=== PATIENT | male | born 1980 | race Caucasian/White ===

== ENCOUNTER 2017-04-13 19:26 | Inpatient (IN) | payer OTHER ==
[~2017-04-13] VITALS: Ht 180.3 cm; Wt 95.3 kg
--- NOTE | 2017-04-13 19:35 | NUR ---
37M C/O 1 DAY OF BILAT ANKLE/FOOT SWELLING WITH PAIN PINPRICKING SENSATION, NOTABLE WARMTH/REDNESS AND BLANCHABLE. DENIES SUN EXPOSURE. DELAYED CAP REFILL ALSO NOTED TO BILAT HANDS. BLOODWORK AT URGENT CARE SHOWS WBC 14.5 WITH SHIFT. REPORTS TEMP OF 101 AT HOME BUT ARRIVES AFEBRILE. ENDORSES LETHARGY AND FATIGUE X3 DAYS. REPORTS FAMILY AT HOME HAS BEEN SICK W GI BUG. -N/V/D, + POOR APPETITE. (-) SYMPTOMS. PREHOSP EKG NORMAL SINUS WITHOUT ECTOPY
--- NOTE | 2017-04-13 19:46 | NUR ---
PT'S BLOOD DRAWN AT TRIAGE 1940 2LAV, 1BLU,1GRAY,1SST AND SENT TO LAB
[2017-04-13 20:05] LABS: ABSOLUTE BASOPHIL COUNT 0 /CUMM (0.0-0.2); ABSOLUTE EOSINOPHIL COUNT 0 /CUMM (0.0-0.7); ABSOLUTE GRANULOCYTE CT 12.7 /CUMM (1.4-6.5); ABSOLUTE LYMPH COUNT 1.9 /CUMM (1.2-3.4); ABSOLUTE MONOCYTE COUNT 0.9 /CUMM (0.10-0.60); BASOPHIL % 0 % (0.0-2.0); EOSINOPHIL % 0.2 % (0-5); GRANULOCYTE % 81.6 % (42.2-75.2); HEMATOCRIT 44.5 % (42-52); MEAN CORPUSCULAR HGB 30.7 PG (27.0-31.0); MEAN CORPUSCULAR HGB CONC 34.3 G/DL (33.0-37.0); MEAN CORPUSCULAR VOLUME 89.6 FL (80.0-94.0); MEAN PLATELET VOLUME 8.7 FL (7.4-10.4); PLATELET COUNT 230 /CUMM (130-400); RBC DISTRIBUTION WIDTH 12.6 % (11.5-14.5); RED BLOOD CELL CT 4.97 /CUMM (4.70-6.10); WHITE BLOOD CELL COUNT 15.6 /CUMM (4.8-10.8)
--- NOTE | 2017-04-13 20:37 | NUR ---
PT AMBULATORY TO ROOM WITH SHORT SHUFFLING STEPS
--- NOTE | 2017-04-13 20:38 | ED GENERAL ADULT ---
History of Present Illness General Chief Complaint: Lower Extremity Problems Stated Complaint: SWELLING IN FEET/ABNORMAL LABS Source: patient Exam Limitations: no limitations Vital Signs & Intake/Output Vital Signs & Intake/Output Vital Signs Date Time Temp Pulse Resp B/P B/P Pulse O2 O2 Flow FiO2 Mean Ox Delivery Rate 04/14 0011 98.1 87 16 128/68 96 Room Air 04/13 2235 98.0 84 14 114/72 04/13 2202 Room Air 04/13 1939 98.1 96 16 98/66 96 Room Air ED Intake and Output 04/14 0000 04/13 1200 Intake Total 1100 Output Total Balance 1100 Intake, IV 1100 Patient 210 lb Weight Weight Reported by Patient Measurement Method Allergies Coded Allergies: animal dander (ITCHY WATERY EYES, DYSPNEA 04/13/17) ibuprofen (Intermediate, PALPITATIONS 04/13/17) Reconcile Medications Ezetimibe (Zetia) 10 MG TABLET 1 TAB PO DAILY CHOLESTEROL (Reported) Pravastatin Sodium 40 MG TABLET 1 TAB PO QPM CHOLESTEROL (Reported) Triage Note: 37M C/O 1 DAY OF BILAT ANKLE/FOOT SWELLING WITH PAIN PINPRICKING SENSATION, NOTABLE WARMTH/REDNESS AND BLANCHABLE. DENIES SUN EXPOSURE. DELAYED CAP REFILL ALSO NOTED TO BILAT HANDS. BLOODWORK AT URGENT CARE SHOWS WBC 14.5 WITH SHIFT. REPORTS TEMP OF 101 AT HOME BUT ARRIVES AFEBRILE. ENDORSES LETHARGY AND FATIGUE X3 DAYS. REPORTS FAMILY AT HOME HAS BEEN SICK W GI BUG. -N/V/D, + POOR APPETITE. (-) SYMPTOMS. PREHOSP EKG NORMAL SINUS WITHOUT ECTOPY Triage Nurses Notes Reviewed? yes Onset: Abrupt Duration: day(s): Timing: recent history HPI: 04/13/17 9 PM 37-year-old male presents to the emergency department for 3 days of fever, nausea and some epigastric discomfort. He says that his daughter was ill with a fever and vomiting. Now he's developed similar symptoms however, he developed bright red erythema and pins and needles to his bilateral lower extremities. He is also diaphoretic, having chills, and sleeping for much of the day. He was hypotensive on arrival. The onset of the symptoms were abrupt, the duration has been several days, the severity is significant as his symptoms required him to come to the emergency department for care. He denies tick bite. He denies headache. He denies cough. On physical exam his abdomen soft and nontender. He has bright red erythema to bilateral lower extremities. He has excellent dorsalis pedis pulses. His lower extremity neurological exam is normal. His heart is without murmur. Lower extremity reflexes are brisk. Past History Travel History Traveled to [place] past 21 day No Medical History Any Pertinent Medical History? see below for history Neurological: NONE EENT: NONE Cardiovascular: hyperlipidemia Respiratory: NONE Gastrointestinal: NONE Hepatic: NONE Renal: NONE Musculoskeletal: NONE Psychiatric: NONE Endocrine: NONE Blood Disorders: NONE Cancer(s): NONE Surgical History Surgical History: non-contributory Psychosocial History What is your primary language Nepali Tobacco Use: Quit >30 days ago ETOH Use: occasional use Illicit Drug Use: denies illicit drug use Family History Hx Contributory? No Review of Systems Review of Systems Constitutional: Reports: fever. EENTM: Denies: visual changes. Respiratory: Denies: cough, short of breath. Cardiovascular: Denies: chest pain. GI: Reports: diarrhea, nausea. Denies: abdominal pain. Genitourinary: Reports: no symptoms. Musculoskeletal: Reports: joint pain, muscle pain. Skin: Reports: rash. Neurological/Psychological: Denies: headache. Hematologic/Endocrine: Reports: no symptoms. Immunologic/Allergic: Reports: no symptoms. Physical Exam Physical Exam General Appearance: well developed/nourished, alert, awake, anxious, moderate distress Head: atraumatic, normal appearance Eyes: Bilateral: normal appearance, PERRL, EOMI. Ears, Nose, Throat: normal pharynx, normal ENT inspection Neck: supple, no nuchal rigidity Respiratory: normal breath sounds, chest non-tender, no respiratory distress Cardiovascular: regular rate/rhythm, no murmur Peripheral Pulses: 4+ radial (R), 4+ radial (L) Gastrointestinal: soft, non-tender Back: normal inspection, normal range of motion Extremities: pedal edema, tenderness Neurologic/Psych: no motor/sensory deficits, awake, alert, oriented x 3 Reflexes: 3+: knee (R), knee (L). Skin: intact, rash Comments: He has no murmur. He is diaphoretic. He has bilateral lower extremity erythema. It is hot, there is diffuse tenderness. No calf tenderness. Core Measures ACS in differential dx? No CVA/TIA Diagnosis: No Severe Sepsis Present: No Septic Shock Present: No Progress Differential Diagnoses I considered the following diagnoses in my evaluation of the patient: [ Cellulitis, endocarditis, bacteremia, tick borne illness, viral syndrome, Guillain-Franklin syndrome] Plan of Care: Orders Procedure Date/time Status Heart Healthy Diet 04/14 B Active Add-on Test (ER Only) 04/14 0028 Active Patient Data 04/13 2257 Active VITAL CAPACITY MONITORING 04/13 2242 Active Admit to inpatient 04/13 2242 Active Code Status 04/13 2242 Active EKG 04/13 2051 Active Add-on Test (ER Only) 04/13 2050 Active BLOOD CULTURE 04/13 2048 Active Intake & Output 04/13 1948 Active Add-on Test (ER Only) 04/13 1947 Active LACTIC ACID 04/13 1940 Complete C-REACTIVE PROTEIN 04/13 1940 Complete COMPREHENSIVE METABOLIC PANEL 04/13 1934 Complete CBC WITHOUT DIFFERENTIAL 04/13 1934 Complete Current Medications Sig/Isadora Start time Last Medication Dose Stop Time Status Admin Pravastatin Sodium 20 MG 1700 04/14 1700 AC (Pravachol) Ezetimibe 10 MG DAILY 04/14 1000 AC (Zetia) Sodium Chloride 1,000 ML Q10H 04/14 0015 AC (Normal Saline 0.9%) Laboratory Tests 04/13/171939: Anion Gap 13, Estimated GFR > 60, BUN/Creatinine Ratio 13.3, Glucose 97, Lactic Acid 1.0, Calcium 9.1, Total Bilirubin 1.7 H, AST 51, ALT 82 H, Alkaline Phosphatase 62, C-Reactive Prot, Quant 7.3 H, Total Protein 7.7, Albumin 4.6, Globulin 3.1, Albumin/Globulin Ratio 1.5, CBC w Diff MAN DIFF ORDERED, RBC 4.97, MCV 89.6, MCH 30.7, RDW 12.6, MPV 8.7, Gran % 81.6 H, Lymphocytes % 12.2 L, Monocytes % 6.0, Eosinophils % 0.2, Basophils % 0 L, Absolute Granulocytes 12.7 H, Segmented Neutrophils 67, Band Neutrophils 11 H, Absolute Lymphocytes 1.9, Lymphocytes 18 L, Monocytes 4, Absolute Monocytes 0.9 H, Absolute Eosinophils 0, Absolute Basophils 0, Platelet Estimate ADEQUATE, Poikilocytosis 2+, Stomatocytes 2+, PUBS MCHC 34.3 Microbiology 04/13 2140 BLOOD: Blood Culture - RECD 04/13 2125 BLOOD: Blood Culture - RECD Initial ED EKG: NSR Departure Departure Disposition: STILL A PATIENT Condition: Stable Clinical Impression Primary Impression: Hyperpyrexia Secondary Impressions: Cellulitis Referrals: PATRICK HERNANDEZ MD (PCP/Family) Departure Forms: Customer Survey General Discharge Information Admission Note Spoke With: MARY VALDEZ,EDIE Documentation of Exam: Documentation of any treatments & extenuating circumstances including Concerns Regarding Discharge (functional status, medication knowledge or non-compliance, living conditions, etc.) that warrant an admission rather than observation: [The patient had severe weakness and fever 101.2 at home, he had been lethargic and was having rigors. He is being admitted for IV fluids, IV antibiotics, infectious disease consult, consider echocardiogram and follow blood cultures to rule out bacteremia] Chest x-ray was negative PATIENT: MAHIN VELEZ PRESENT AGE: 37 PATIENT ACCOUNT NO: [id number] : 78 LOCATION: [facility] ORDERING PHYSICIAN: MOJGAN ENRIQUEZ DO SERVICE DATE: 04/13/17 EXAM TYPE: CAT - CT ABD & PELVIS W IV CONTRAST EXAMINATION: CT ABDOMEN AND PELVIS WITH CONTRAST CLINICAL INFORMATION: Epigastric abdominal pain and fever. COMPARISON: None. TECHNIQUE: Multidetector volumetric imaging was performed of the abdomen and pelvis before and after the IV administration of 95 mL of Optiray 320 intravenous contrast. Sagittal and coronal reformatted images were obtained on the technologist's workstation. DLP: 524 mGy-cm FINDINGS: LUNG BASES: The visualized lung bases are unremarkable. LIVER, GALLBLADDER, AND BILIARY TREE: The liver is normal in size, shape and contour. There is diffuse low-attenuation of the liver parenchyma, indicative of diffuse fatty infiltration of the liver. There are geographic regions of focal fatty sparing adjacent to the gallbladder fossa. No biliary ductal dilatation is identified. There are no visible hepatic lesions. The gallbladder is unremarkable with no evidence of radiopaque gallstones, gallbladder wall thickening, or obvious pericholecystic inflammatory changes. PANCREAS: Unremarkable. SPLEEN: Unremarkable. ADRENAL GLANDS: Unremarkable. KIDNEYS AND URETERS: The kidneys are normal in size, shape, and attenuation. No hydronephrosis, hydroureter, or calculi seen. No perinephric stranding. BLADDER: Unremarkable. GASTROINTESTINAL TRACT: Normal anatomic orientation of the stomach relative to the duodenum. Normal caliber of abdominal and pelvic bowel loops, without evidence of obstruction or ileus. No circumferential bowel wall thickening with surrounding inflammatory changes to suggest an underlying infectious or inflammatory enterocolitis. Normal-appearing appendix within the right lower quadrant of the abdomen. A moderate amount of retained stool throughout the colon, indicative of constipation. Scattered colonic diverticulosis, without secondary signs of acute diverticulitis. No organizing intra-abdominal fluid collections or free intraperitoneal air. ABDOMINAL WALL: No significant hernia is appreciated. LYMPH NODES: No significant abdominal or pelvic adenopathy. VASCULAR: Patent abdominal vasculature. Normal course and caliber of the abdominal aorta and its branching vessels, without aneurysmal dilatation. PELVIC VISCERA: Unremarkable. OSSEOUS STRUCTURES: No acute osseous abnormality. Normal alignment of the thoracolumbar spine. Vertebral body heights and intervertebral disc spaces are grossly preserved. IMPRESSION: No acute findings within the abdomen or pelvis to explain patient symptomatology. Incidental note is made of diffuse low-attenuation of the liver parenchyma, indicative of fatty infiltration of the liver. DICTATED BY: ABDULLAHI PINEDO MD DATE/TIME DICTATED:04/13/172121 GUEST EXPERIENCE REPRESENTATIVE:JERED DATE/TIME TRANSCRIBED:04/13/172121 CONFIDENTIAL, DO NOT COPY WITHOUT APPROPRIATE AUTHORIZATION. <Electronically signed in Other Vendor System> SIGNED BY: ABDULLAHI PINEDO MD 04/13/172129 Critical Care Note Critical Care Note Critical Care Time: non-applicable
--- NOTE | 2017-04-13 20:46 | NUR ---
DR ENRIQUEZ WITH PATIENT
--- NOTE | 2017-04-13 21:12 | RADIOLOGY REPORT ---
EXAMINATION: XR PORTABLE CHEST CLINICAL INFORMATION: Fever. COMPARISON: None TECHNIQUE: Frontal view of the chest was obtained. FINDINGS: The cardiomediastinal silhouette is unremarkable. The lungs and pleural spaces appear clear without evidence of congestion, consolidation, or significant appearing effusion or atelectasis. There is no evidence of pneumothorax or pulmonary edema. Included osseous structures appear largely unremarkable. IMPRESSION: Unremarkable examination.
--- NOTE | 2017-04-13 21:30 | CT SCAN REPORT ---
EXAMINATION: CT ABDOMEN AND PELVIS WITH CONTRAST CLINICAL INFORMATION: Epigastric abdominal pain and fever. COMPARISON: None. TECHNIQUE: Multidetector volumetric imaging was performed of the abdomen and pelvis before and after the IV administration of 95 mL of Optiray 320 intravenous contrast. Sagittal and coronal reformatted images were obtained on the technologist's workstation. DLP: 524 mGy-cm FINDINGS: LUNG BASES: The visualized lung bases are unremarkable. LIVER, GALLBLADDER, AND BILIARY TREE: The liver is normal in size, shape and contour. There is diffuse low-attenuation of the liver parenchyma, indicative of diffuse fatty infiltration of the liver. There are geographic regions of focal fatty sparing adjacent to the gallbladder fossa. No biliary ductal dilatation is identified. There are no visible hepatic lesions. The gallbladder is unremarkable with no evidence of radiopaque gallstones, gallbladder wall thickening, or obvious pericholecystic inflammatory changes. PANCREAS: Unremarkable. SPLEEN: Unremarkable. ADRENAL GLANDS: Unremarkable. KIDNEYS AND URETERS: The kidneys are normal in size, shape, and attenuation. No hydronephrosis, hydroureter, or calculi seen. No perinephric stranding. BLADDER: Unremarkable. GASTROINTESTINAL TRACT: Normal anatomic orientation of the stomach relative to the duodenum. Normal caliber of abdominal and pelvic bowel loops, without evidence of obstruction or ileus. No circumferential bowel wall thickening with surrounding inflammatory changes to suggest an underlying infectious or inflammatory enterocolitis. Normal-appearing appendix within the right lower quadrant of the abdomen. A moderate amount of retained stool throughout the colon, indicative of constipation. Scattered colonic diverticulosis, without secondary signs of acute diverticulitis. No organizing intra-abdominal fluid collections or free intraperitoneal air. ABDOMINAL WALL: No significant hernia is appreciated. LYMPH NODES: No significant abdominal or pelvic adenopathy. VASCULAR: Patent abdominal vasculature. Normal course and caliber of the abdominal aorta and its branching vessels, without aneurysmal dilatation. PELVIC VISCERA: Unremarkable. OSSEOUS STRUCTURES: No acute osseous abnormality. Normal alignment of the thoracolumbar spine. Vertebral body heights and intervertebral disc spaces are grossly preserved. IMPRESSION: No acute findings within the abdomen or pelvis to explain patient symptomatology. Incidental note is made of diffuse low-attenuation of the liver parenchyma, indicative of fatty infiltration of the liver.
[2017-04-13] MEDS ORDERED: ZETIA10 M1 PO (22:18)
[2017-04-13] MEDS ORDERED: PRAVASTATIN SOD40 M2 PO (22:18)
--- NOTE | 2017-04-13 23:32 | History & Physical ---
GABRIELLA VALDEZ,[facility] 04/13/17 2331: General Information and HPI MD Statement: I have seen and personally examined MAHIN VELEZ and documented this H& P. The patient is a 37 year old M who presented with a patient stated chief complaint of [fever, chills, swelling and redness of bilateral feet for 2 day]. Source of Information: patient Exam Limitations: no limitations History of Present Illness: Mr. Kee is 37 year old male with chief complaint of fever, chills, rash and swelling of bilateral feet for 2 day. Patient has past medical history significant for hyperlipidemia and GERD. The patient reported history of viral gastroenteritis in his family (, 2 daughters) last week, on Wednesday morning he complained of nausea that responded well to Pepcid, later developed fever of 101 that improved with tyelanol, denied chills, went to bed and woke up at 3 AM complaining of severe heartburn for what he had Prilosec without improvement, had some baking soda that helped him but later developed again fever at this time associated with chills. Patient reported onset of pins and needle sensation in the feet, fever 101.2 this evening, took 2 tablets of Tylenol and had a nap 45 minutes and when he woke up he noticed swelling and redness of his feet for what he decided to come to ED for evaluation. Patient reported tension achy headache, pins and needles sensation in palms as well. Denied any abdominal pain, vomiting, diarrhea, constipation last bowel movement was 2 days ago, dysuria or penile discharge, skin itching, shortness of breath, chest pain, joint pain, penile discharge, history of falls. He denied any history of tick bite however mentioned that his had tick bite last week. Patient denied food or drug allergy. No previous hospitalizations except for left knee arthroscopy. Ex-smoker quit 10 years ago, smoked 10 years prior to that of 1 pack per day, alcohol consumption for to 5 glasses of wine per week, no illicit drugs. Allergies/Medications Allergies: Coded Allergies: animal dander (ITCHY WATERY EYES, DYSPNEA 04/13/17) ibuprofen (Intermediate, PALPITATIONS 04/13/17) Home Med list Ezetimibe (Zetia) 10 MG TABLET 1 TAB PO DAILY CHOLESTEROL (Reported) Pravastatin Sodium 40 MG TABLET 1 TAB PO QPM CHOLESTEROL (Reported) Past History Travel History Traveled to [place] past 21 day No Medical History Neurological: NONE EENT: NONE Cardiovascular: hyperlipidemia Respiratory: NONE Gastrointestinal: GERD Hepatic: NONE Renal: NONE Musculoskeletal: NONE Psychiatric: NONE Endocrine: NONE Blood Disorders: NONE Cancer(s): NONE Surgical History Surgical History: non-contributory Past Family/Social History Psychosocial History Smoking Status: Former Smoker ETOH Use: occasional use Illicit Drug Use: denies illicit drug use Employment History Employment Employed Review of Systems Review of Systems Constitutional: Reports: see HPI. Exam & Diagnostic Data Last 24 Hrs of Vital Signs/I&O Vital Signs Date Time Temp Pulse Resp B/P B/P Pulse O2 O2 Flow FiO2 Mean Ox Delivery Rate 04/14 0011 98.1 87 16 128/68 96 Room Air 04/13 2235 98.0 84 14 114/72 04/13 2202 Room Air 04/13 1939 98.1 96 16 98/66 96 Room Air Intake & Output 04/14 0800 04/14 0000 04/13 1600 Intake Total 1100 Output Total Balance 1100 Intake, IV 1100 Patient 95.254 kg 95.254 kg Weight Weight Reported by Patient Reported by Patient Measurement Method Physical Exam General Appearance Alert, Oriented X3, Cooperative, No Acute Distress Skin blanching petechial rash over bilateral feet, arms, ears, chest Skin Temp/Moisture Exam: Warm/Dry HEENT Atraumatic, PERRLA, EOMI, Mucous Membr. moist/pink Neck Supple Lymphatic no cervical lymphadenopathy Cardiovascular Regular Rate, Normal S1, Normal S2, No Murmurs Lungs Clear to Auscultation, Normal Air Movement Abdomen Normal Bowel Sounds, Soft, No Tenderness, No Hepatospenomegaly, No Masses, distended Neurological Normal Gait, Normal Speech, Strength at 5/5 X4 Ext, Normal Tone, Sensation Intact, Cranial Nerves 3-12 NL Extremities No Clubbing, No Cyanosis, Normal Pulses, very sensitive feet to light touch swollen but no pedal pitting edema Assessment/Plan Assessment: Mr. Kee is 37 year old male with past medical history significant for hyperlipidemia and GERD, has chief complaint of fever, chills, rash, swelling, pins and needles sensation of bilateral feet and palms. No signs or symptoms of neurological deficit. History of sick contact patient's family with gastroenteritis last week and history of tick bite patient's last week as well. Patient's vital signs are stable, afebrile in the hospital may be because of recent use of acetaminophen at home, MAXIMUM TEMPERATURE 101.2. His lab is pretinent to leukocytosis with left shift and bandemia, ALT 82, C-reactive protein 7.3, no imaging abnormality on chest x-ray or CT abdomen and pelvis with IV contrast except for fatty liver, diverticulosis without signs of diverticulitis and constipation. Patient presentation seemed to be either viral illness versus tickborne disease or could be vasculitis. Another thing that needs explanation the transaminitis ALT that can be a finding in viral/tickborne illnesses. Plan -Admit to general medical floor -IV fluid normal saline 75 mL/h -Pain management -Follow-up anaplasma and Lyme titer -Obtain hepatitis panel -Repeat liver function test, BMP and CBC in a.m. -Obtain coagulase -Obtain UA -Peripheral smear -Vital signs every shift -Neuro check every 4 hours -We'll follow off antibiotics -ID consultation in a.m. -Diet regular -DVT prophylaxis Lovenox -Code full As Ranked By This Provider Problem List: 1. Chills 2. Skin rash 3. Fever Core Measures/Miscellaneous Acute Coronary Syndrome ACS Diagnosis: No Cerebrovascular Accident CVA/TIA Diagnosis: No Congestive Heart Failure CHF Diagnosis: No VTE (View Protocol) VTE Risk Factors: Acute medical illness No [facility] VTE prophylaxis d/t: No contraindications No VTE Pharm Prophylaxis d/t: No contraindications VTE Diagnosis: No VTE Type: NONE VTE Confirmed by (Test): NONE Sepsis (View Protocol) Severe Sepsis Present: No Septic Shock Septic Shock Present: No Miscellaneous Documentation Attending Case Discussed With: RADHA HERNANDEZ MD Primary Care Physician: PATRICK HERNANDEZ MD Patient sees these Specialists NONE Level of Patient Care: General Medicine SPARKLE PEREZ MD 04/13/17 1046: Resident Review Statement Resident Statement: examined this patient, discussed with safety intern, agreed with safety intern Other Findings: This is a pleasant 37-year-old male with a past medical history of only significant for high cholesterol, GERD and former smoker who presents with a 2 day onset of fever with a MAXIMUM TEMPERATURE of 101.2, heartburn, one episode of nausea but no vomiting and sudden onset of non-pruritic redness and swelling on his bilateral lower extremities with pins and needles sensation. He also endorses a tension headache that denies any known food or drug allergies, joint pain or myalgia. No hx of autoimmune disease or rheumatolgic hx. Pertinent exam-erythematous blanchable/petechial rash on both feet and both hands with decreased sensation and hypersensitivity to touch. Rash also present on earlobes, neck and upper chest, elbows and knees. Pertinent labs-WBC 15.6, no eosinophilia, sodium 136, bands 11, TBL 1.7, ALT 82, AST 51, CRP 7.3 CT abdomen-fatty infiltration of the liver, chest x-ray unremarkable Assessment 1. Possible Tickborne Illness vs Vasculitis e.g Drug induced vasculitis - Erlichiosis-can present with rash and a slow progressive neurological presentation that affects the extremities more than the center of the body and presents with a rash, tingling, numbness, burning/shooting pain in the legs and severe pain syndrome DD- Viral exanthem-e.g scarlet fever but he has no oral affectation; may resolve on its own in a few days - Possible Drug/food reaction 2. Leukocytosis with bands, elevated CRP 3. Elevated ALT and T. Karsten 4. HLD 5. GERD Plan Admit to GM Watch off antibiotics for now Check Lyme and anaplasma PCR Check ANDRES Check peripheral smear IVF hydration Adequate pain control Neurochecks every 4 hours to rule out any ascending paralysis or GBS-type sequelae Repeat CBCs, BEP and LFTs in a.m. ID consult in AM Check a urinalysis Check PT/APTT Obtain hepatitis panel Resume his important home medications Heart healthy diet Full code RADHA HERNANDEZ 04/14/17 0443: Attending MD Review Statement Attending Statement Attending MD Statement: examined this patient, discuss w/resident/PA/BOAT CARPENTER, agreed w/resident/PA/BOAT CARPENTER, reviewed EMR data (avail), reviewed images, amended to note Attending Assessment/Plan: CC: Fever and rash PMH: HLD, GERD Patient came to ER with 2 days of fever, associated with chills today. Patient started to notice fever yesterday, it was not associated with chills at that time, patient took some Tylenol and symptomatically better. He apparently is morning of admission patient had fever with chills up to 101. Had heartburn. He is he took an afternoon nap for 45 minutes, then he woke up, he saw redness on his feet bilaterally. It was associated with pin pricking sensation in feet, it was painful that patient could not even stand. Later on he noticed some rash on palms, back of his neck. The rash is non-itchy, no discharge, no hives, not associated with respiratory problems. The his suggested him to go to ER for the rash. He endorses fatigue and headache. Denies any chest pain, cough, sputum production, palpitations, abdominal pain, nausea, diarrhea, vomiting, urinary symptoms, joint pain, loss of consciousness, blurry vision. He is being house hunting Recently and may have mosquito bite and tick bite. His daughter had been sick with multiple vomitings, but did not have similar rash. Vitals: afebrile, pulse in 90s, RR 16, blood pressure 98/66 upon arrival, improved to 114/72, saturating well on room air. On exam: A O 3, cooperative, no acute distress, neck supple, JVD normal, no lymphadenopathy, mucosa moist, strength and reflexes intact bilateral upper and lower extremity, there is no numbness but paresthesias bilateral lower extremity , cranial nerves intact, no dependent edema, petechial rash bilateral feet, mild blanching CVS: S1-S2, RRR. RS: Clear to auscultate bilaterally. Abdomen: Soft, NT, ND, bowel sounds present. Peripheral pulses perfusion intact Labs: WBC 15.6, neutrophils 81%, bands 11 otherwise CBC unremarkable. Sodium 136 , potassium 3.6, chloride 99, bicarbonate 24, BUN 12, creatinine 0.9, anion gap 13. Bilirubin 1.7, AST 51, AST 82, alkaline phosphatase 62, CRP 7.2, albumin 4.6 CXR: No acute changes CT abdomen pelvis with IV contrast: No acute findings within the abdomen or pelvis to explain patient symptomatology. Incidental note is made of diffuse low-attenuation of the liver parenchyma, indicative of fatty infiltration of the liver. A and P 37-year-old male with the no significant past medical history presented in ER with acute febrile illness and petechial rash on feet. He does not have any documented fever in ER but had taken acetaminophen at home. He has blanching petechial rash on feet, mild redness on palms and redness on back of neck. Peripheral pulses perfusion normal, neurological exam normal, no neck stiffness, no vision abnormality. He has leukocytosis with bands and mild transaminitis with elevated bilirubin and elevated CRP. History of mosquito bite and tick bite cannot be denied. Viral to bacterial a rash or vasculitis is a possibility. This does not appear cellulitis. Of note patient had transaminitis in the past month of October, at that time he was drinking alcohol more than usual and was started on statins, transaminitis trended down when rechecked in January. + Petechial rash on feet + Acute febrile illness + Transaminitis - Admit to general medicine - Blood culture - DC antibiotics - Continue gentle hydration - ID consult in a.m. - Check peripheral smear - watch for any neurological weakness, neck stiffness, worsening headache - Check PT/PTT INR, viral hepatitis panel, UA - DVT prophylaxis with Alps only, early ambulation - Adequate pain control
--- NOTE | 2017-04-13 23:48 | NUR ---
HOUSE STAFF AT BEDSIDE FOR EVAL.
--- NOTE | 2017-04-13 23:52 | NUR ---
REPORT GIVEN TO ENRIQUE SEWELL. PT TO BE TRANSPORTED UPSTAIRS AFTER HOUSE STAFF IS DONE WITH EVALUATION.
--- NOTE | 2017-04-14 00:18 | NUR ---
PT AMBULATED TO BATHROOM WITH STEADY GAIT AND NO ACUTE DISTRESS NOTED.
--- NOTE | 2017-04-14 00:21 | NUR ---
PT ADMITTED TO BED 210-1
--- NOTE | 2017-04-14 04:46 | Admission Certification ---
Admission Certification Certification Statement - As attending physician, I certify that at the time of - admission, based on clinical presentation, severity of - symptoms, need for further diagnostic testing and - therapeutic interventions, and risk of adverse outcomes - without in-hospital treatment, in my clinical assessment, - this patient requires an acute hospital stay for a minimum - of two nights or longer. I have also considered psychsocial - factors such as support system, advanced age, financial - issues, cognitive issues, and failed out-patient treatments, - past re-admission history, safety of patient, and lack of - compliance as applicable. Specific rationale supporting this admission is: Acute febrile illness, petechial rash
[2017-04-14 06:50] VITALS: BP 136/74
[2017-04-14 06:51] VITALS: BP 110/70
--- NOTE | 2017-04-14 07:28 | PN- Housestaff ---
SHANTA VALDEZ,CHERRY 04/14/17 0728: Subjective Follow-up For: Suspected RMSF Febrile illness with rash Subjective: I saw and examined the patient today morning He is lying in the bed, reports slept well and feeling better. rash is neither improving nor getting worse. Review of Systems Constitutional: Reports: see HPI. Comments: ROS negative except the above Objective Last 24 Hrs of Vital Signs/I&O Vital Signs Date Time Temp Pulse Resp B/P B/P Pulse O2 O2 Flow FiO2 Mean Ox Delivery Rate 04/14 0651 97.5 87 18 110/70 97 Room Air 04/14 0650 98.1 90 16 136/74 97 Room Air 04/14 0011 98.1 87 16 128/68 96 Room Air 04/13 2235 98.0 84 14 114/72 04/13 2202 Room Air 04/13 1939 98.1 96 16 98/66 96 Room Air Intake & Output 04/14 0800 04/14 0000 04/13 1600 Intake Total 800 1100 Output Total 660 Balance 140 1100 Intake, IV 800 1100 Output, Urine 660 Patient 95.254 kg 95.254 kg Weight Weight Reported by Patient Reported by Patient Measurement Method Physical Exam General Appearance: Alert, Oriented X3, Cooperative, No Acute Distress Skin: blanchable rash in the feet and hands -- along the ears and neck as well HEENT: Atraumatic, PERRLA, EOMI Neck: Supple Cardiovascular: Normal S1, Normal S2 Lungs: Clear to Auscultation, Normal Air Movement Abdomen: Normal Bowel Sounds, Soft, No Tenderness Neurological: Normal Gait, Normal Speech, Strength at 5/5 X4 Ext, Normal Tone, Sensation Intact, Cranial Nerves 3-12 NL Extremities: No Clubbing, No Cyanosis, No Edema Current Medications: Current Medications Sig/Isadora Start time Last Medication Dose Route Stop Time Status Admin Acetaminophen 650 MG Q6P PRN 04/14 0030 AC PO Ampicillin Sodium/ 0 .STK-MED ONE 04/13 2146 DC Sulbactam Sodium .ROUTE Ampicillin Sodium/ 3,000 MG ONCE ONE 04/13 2100 DC 04/13 Sulbactam Sodium IV 04/13 2129 2145 Sodium Chloride 100 ML Doxycycline Hyclate 100 MG BID 04/14 1451 AC PO Enoxaparin Sodium 40 MG DAILY 04/14 1000 AC 04/14 SC 1028 Ezetimibe 10 MG DAILY 04/14 1000 AC 04/14 PO 1028 Ibuprofen 600 MG Q6P PRN 04/14 0030 AC PO Oxycodone/ 2 TAB Q6P PRN 04/14 0030 AC Acetaminophen PO Patient Medication 1 ED .STK-MED ONE 04/14 1328 [facility] ED 04/14 1329 Pravastatin Sodium 20 MG 1700 04/14 1700 AC PO Sodium Chloride 1,000 ML Q10H 04/14 0015 AC 04/14 IV 1028 Sodium Chloride 1,000 ML BOLUS ONE 04/13 2100 DC 04/13 IV 04/13 2159 2145 Last 24 Hrs of Lab/Dalton Results Last 24 Hrs of Labs/Mics: Laboratory Tests 04/14/17 1525: CBC w Diff NO MAN DIFF REQ, RBC 4.75, MCV 91.0, MCH 30.7, RDW 12.9, MPV 8.6, Gran % 57.2, Lymphocytes % 28.0, Monocytes % 10.8 H, Eosinophils % 3.5, Basophils % 0.5, Absolute Granulocytes 4.7, Absolute Lymphocytes 2.3, Absolute Monocytes 0.9 H, Absolute Eosinophils 0.3, Absolute Basophils 0, PUBS MCHC 33.7 , Cryoglobulin Interp Pending 04/14/17 0615: Total Bilirubin 1.4 H, Direct Bilirubin 0.4, AST 37, ALT 66, Alkaline Phosphatase 52, Total Protein 6.4, Albumin 3.9, PT 13.2 H, INR 1.26 H, APTT 31 , Hepatitis A IgM Ab NONREACTIVE, Hep Bs Antigen NONREACTIVE, Hep B Core IgM Ab Conf NONREACTIVE, Hepatitis C Antibody NONREACTIVE, HIV 1&2 Ab Western Blot NONREACTIVE 04/14/17 0604: Urinalysis MOD H, Urine Color YEL, Urine Clarity CLEAR, Urine pH 7.5, Ur Specific Thida 1.010, Urine Protein NEG, Urine Ketones NEG, Urine Nitrite NEG, Urine Bilirubin NEG, Urine Urobilinogen 2.0 H, Ur Leukocyte Esterase NEG, Ur Microscopic SEDIMENT EXAMINED, Urine RBC 3-5, Ur Epithelial Cells RARE, Urine Bacteria FEW H, Urine Hemoglobin TRACE-INTACT H, Urine Glucose NEG 04/14/17 0600: Ref Lab Test Result Pending 04/13/17 1940: Anion Gap 13, Estimated GFR > 60, BUN/Creatinine Ratio 13.3, Glucose 97, Lactic Acid 1.0, Calcium 9.1, Total Bilirubin 1.7 H, AST 51, ALT 82 H, Alkaline Phosphatase 62, Lactate Dehydrogenase 567, Creatine Kinase 120, C-Reactive Prot, Quant 7.3 H, Total Protein 7.7, Albumin 4.6, Globulin 3.1, Albumin/Globulin Ratio 1.5, CBC w Diff MAN DIFF ORDERED, RBC 4.97, MCV 89.6, MCH 30.7, RDW 12.6, MPV 8.7, Gran % 81.6 H, Lymphocytes % 12.2 L, Monocytes % 6.0, Eosinophils % 0.2, Basophils % 0 L, Absolute Granulocytes 12.7 H, Segmented Neutrophils 67, Band Neutrophils 11 H, Absolute Lymphocytes 1.9, Lymphocytes 18 L, Monocytes 4 , Absolute Monocytes 0.9 H, Absolute Eosinophils 0, Absolute Basophils 0, Platelet Estimate ADEQUATE, Poikilocytosis 2+, Stomatocytes 2+, PUBS MCHC 34.3, ANDRES Titer ND, Anti-Nuclear Antibody NEG 1:40 IFA ASSAY Microbiology 04/13 2140 BLOOD: Blood Culture - RES 04/13 2125 BLOOD: Blood Culture - RES Assessment/Plan Assessment: 37 YO M with no significant PMH came to the [facility] ER with nausea and reflux symptoms, associated with fevers and chills along with pinpricking sensation over both feet and hands, followed by the development of a macular rash in these areas. Denies any tick/mosquito bites. On admission he was afebrile. Labs revealed a WBC of 16,000, with 67 segs and 11 bands, BUN/creatinine 12 and 0.9, bilirubin 1.7, AST/ALT 51 and 82. ANDRES negative. Chest x-ray was negative. CT of the abdomen and pelvis with contrast was negative. He has remained afebrile overnight. I am thinking of a tick borne illness at this point, noninfectious causes although less likely include vasculitis. Admitted to general medicine floor Febrile illness with rash * Tickborne illness/RMSF at the most probable differentials * Requested Lyme serology, RMSF serology, cryoglobulin, ESR * A repeat CBC shows improvement in white count today * Started on doxycycline 100 mg every 12 pending about * ID on board - appreciate recommendations * Hepatitis and HIV are negative * Dermatology consult Hyperlipidemia: Continue pravastatin 20 mg and Ezetimibe 10mg DVT prophylaxis * Subcutaneous Lovenox CODE STATUS * Full code Problem List: 1. Cellulitis 2. Skin rash 3. Fever 4. Chills Pain Ratin Pain Location: Hands and feet Pain Goal: Pain 4 or less Pain Plan: Tylenol prn Tomorrow's Labs & Rationales: cbc and bep KARMA MUÑOZ MD 04/14/17 1258: Attending MD Review Statement Attending Statement Attending MD Statement: examined this patient, discuss w/resident/PA/SENIOR UI SOFTWARE ENGINEER, agreed w/resident/PA/SENIOR UI SOFTWARE ENGINEER, reviewed EMR data (avail) Attending Assessment/Plan: 37M PMH GERD, HLD with 2 days of fever, chills, epigastric discomfort, and bilateral feet swelling and dorsal erythema. No recent change in diet, walked on the beach recently but in shoes, has spent some time outdoors but no memory of tick, insect, or spider bite, no change in clothing, detergent, or other possible irritant. Had noticed rash on palms yesterday but this resolved. Today feet are still swollen and painful. There is a diffuse erythematous rash on the dorsal aspect of both feet that extend to the ankle. There is tenderness. No rash on palms and soles. Labs unremarkable. Plan - Continue on general medicine - ID consult - Dermatology consult - Send Lyme titer, cryoglobulins, ANDRES, blood cultures - Off antibiotics for now - Continue home medications -DVT PPx
[2017-04-14 08:18] LABS: PT 13.2 SEC (9.4-12.5); PTT 31 SEC (25-37)
[2017-04-14 14:35] VITALS: BP 126/80
--- NOTE | 2017-04-14 15:31 | Cons- Infect Disease ---
General Information and HPI Consulting Request Date of Consult: 04/14/17 Requested By: RADHA HERNANDEZ MD Reason for Consult: Rash on both feet Source of Information: patient History of Present Illness: This is a 37-year-old man with no significant past medical history admitted on April 13 with a 1 day history of nausea with reflux symptoms, for which he took Pepcid, Prilosec and baking soda, associated with fevers and chills and with the onset on the morning of admission of a pinpricking sensation over both feet and hands, followed by the development of a macular rash in these areas. He denied any unusual direct contact or exposures, with no recent tick or mosquito bites. On admission he was afebrile. Laboratory data revealed a white blood cell count of 16,000, with 67 segs and 11 bands, BUN/creatinine 12 and 0.9, bilirubin 1.7, AST/ALT 51 and 82. ANDRES negative. Chest x-ray was negative. CT of the abdomen and pelvis with contrast was negative. He was given 1 dose of Unasyn and then followed off antibiotics. He has remained afebrile overnight. He notes no further nausea or indigestion but continues to report some discomfort from the rash on his feet and palms of his hands. Allergies/Medications Allergies: Coded Allergies: animal dander (ITCHY WATERY EYES, DYSPNEA 04/13/17) ibuprofen (Intermediate, PALPITATIONS 04/13/17) Home Med List: Ezetimibe (Zetia) 10 MG TABLET 1 TAB PO DAILY CHOLESTEROL (Reported) Pravastatin Sodium 40 MG TABLET 1 TAB PO QPM CHOLESTEROL (Reported) Past History Travel History Traveled to [place] past 21 day No Medical History Blood Transfusion Hx: No Neurological: NONE EENT: NONE Cardiovascular: hyperlipidemia Respiratory: NONE Gastrointestinal: GERD Hepatic: NONE Renal: NONE Musculoskeletal: NONE Psychiatric: NONE Endocrine: NONE Blood Disorders: NONE Cancer(s): NONE History of MRSA: No History of VRE: No History of CDIFF: No Isolation History: Standard Surgical History Surgical History: non-contributory Psychosocial History Where Do You Live? Home Services at Home: NONE Smoking Status: Former Smoker ETOH Use: occasional use Illicit Drug Use: denies illicit drug use Employment History Employment: Employed Review of Systems Review of Systems All Other Systems: Reviewed and Negative Exam & Diagnostic Data Last 24 Hrs of Vital Signs/I&O Vital Signs Date Time Temp Pulse Resp B/P B/P Pulse O2 O2 Flow FiO2 Mean Ox Delivery Rate 04/14 1435 98.2 74 18 126/80 96 Room Air 04/14 0651 97.5 87 18 110/70 97 Room Air 04/14 0650 98.1 90 16 136/74 97 Room Air 04/14 0011 98.1 87 16 128/68 96 Room Air 04/13 2235 98.0 84 14 114/72 04/13 2202 Room Air 04/13 1939 98.1 96 16 98/66 96 Room Air Intake & Output 04/14 1600 04/14 0800 04/14 0000 Intake Total 800 1100 Output Total 660 Balance 140 1100 Intake, IV 800 1100 Output, Urine 660 Patient 210 lb 210 lb Weight Weight Reported by Patient Reported by Patient Measurement Method Physical Exam Other Physical Findings: He is awake and alert in no acute distress. He is afebrile. Skin symmetrical macular rash over the dorsal aspect of both feet with a clear center; macular rash on both palms with a clear center; no definite evidence of rash elsewhere. HEENT exam is negative. Neck is supple with no adenopathy. Lungs are clear. Heart regular rhythm with no murmur. Abdomen is soft, nontender with positive bowel sounds. Back no CVA tenderness. Extremities no cyanosis, clubbing or edema. Neuro is without focality. Last 24 Hours of Lab Results: Laboratory Tests 04/14 04/14 0615 0604 Chemistry Total Bilirubin (0.2 - 1.3 mg/dL) 1.4 H Direct Bilirubin (< 0.4 mg/dL) 0.4 AST (17 - 59 U/L) 37 ALT (21 - 72 U/L) 66 Alkaline Phosphatase (< 127 U/L) 52 Total Protein (6.3 - 8.2 g/dL) 6.4 Albumin (3.5 - 5.0 g/dL) 3.9 Coagulation PT (9.4 - 12.5 SEC) 13.2 H INR (0.90 - 1.17) 1.26 H APTT (25 - 37 SEC) 31 Serology Hepatitis A IgM Ab (NONREACTIVE) NONREACTIVE Hep Bs Antigen (NONREACTIVE) NONREACTIVE Hep B Core IgM Ab Conf (NONREACTIVE) NONREACTIVE Hepatitis C Antibody (NONREACTIVE) NONREACTIVE HIV 1&2 Ab Western Blot (NONREACTIVE) NONREACTIVE Urines Urinalysis MOD H Urine Color (YEL,AMB,STR) YEL Urine Clarity (CLEAR) CLEAR Urine pH (5.0 - 8.0) 7.5 Ur Specific Marina (1.001 - 1.035) 1.010 Urine Protein (NEG,<30 MG/DL) NEG Urine Ketones (NEG) NEG Urine Nitrite (NEG) NEG Urine Bilirubin (NEG) NEG Urine Urobilinogen (0.1 - 1.0 EU/dl) 2.0 H Ur Leukocyte Esterase (NEG) NEG Ur Microscopic SEDIMENT EXAMINED Urine RBC (0 - 5 /HPF) 3-5 Ur Epithelial Cells (NONE,FEW) RARE Urine Bacteria (NEG/NONE) FEW H Urine Hemoglobin (NEG) TRACE-INTACT H Urine Glucose (N MG/DL) NEG 04/14 04/13 0600 1940 Chemistry Sodium (137 - 145 mmol/L) 136 L Potassium (3.5 - 5.1 mmol/L) 3.6 Chloride (98 - 107 mmol/L) 99 Carbon Dioxide (22 - 30 mmol/L) 24 Anion Gap (5 - 16) 13 BUN (9 - 20 mg/dL) 12 Creatinine (0.7 - 1.2 mg/dL) 0.9 Estimated GFR (>60 ml/min) > 60 BUN/Creatinine Ratio (7 - 25 %) 13.3 Glucose (65 - 99 mg/dL) 97 Lactic Acid (0.7 - 2.1 mmol/L) 1.0 Calcium (8.4 - 10.2 mg/dL) 9.1 Total Bilirubin (0.2 - 1.3 mg/dL) 1.7 H AST (17 - 59 U/L) 51 ALT (21 - 72 U/L) 82 H Alkaline Phosphatase (< 127 U/L) 62 Lactate Dehydrogenase (313 - 618 U/L) 567 Creatine Kinase (55 - 170 U/L) 120 C-Reactive Prot, Quant (<1.0 mg/dL) 7.3 H Total Protein (6.3 - 8.2 g/dL) 7.7 Albumin (3.5 - 5.0 g/dL) 4.6 Globulin (1.9 - 4.2 gm/dL) 3.1 Albumin/Globulin Ratio (1.1 - 2.2 %) 1.5 Hematology CBC w Diff MAN DIFF ORDERED WBC (4.8 - 10.8 /CUMM) 15.6 H RBC (4.70 - 6.10 /CUMM) 4.97 Hgb (14.0 - 18.0 G/DL) 15.3 Hct (42 - 52 %) 44.5 MCV (80.0 - 94.0 FL) 89.6 MCH (27.0 - 31.0 PG) 30.7 RDW (11.5 - 14.5 %) 12.6 Plt Count (130 - 400 /CUMM) 230 MPV (7.4 - 10.4 FL) 8.7 Gran % (42.2 - 75.2 %) 81.6 H Lymphocytes % (20.5 - 51.1 %) 12.2 L Monocytes % (1.7 - 9.3 %) 6.0 Eosinophils % (0 - 5 %) 0.2 Basophils % (0.0 - 2.0 %) 0 L Absolute Granulocytes (1.4 - 6.5 /CUMM) 12.7 H Segmented Neutrophils (42.2 - 75.2 %) 67 Band Neutrophils (0.0 - 5.0 %) 11 H Absolute Lymphocytes (1.2 - 3.4 /CUMM) 1.9 Lymphocytes (20.5 - 51.1 %) 18 L Monocytes (1.7 - 9.3 %) 4 Absolute Monocytes (0.10 - 0.60 /CUMM) 0.9 H Absolute Eosinophils (0.0 - 0.7 /CUMM) 0 Absolute Basophils (0.0 - 0.2 /CUMM) 0 Platelet Estimate (ADEQUATE) ADEQUATE Poikilocytosis 2+ Stomatocytes 2+ PUBS MCHC (33.0 - 37.0 G/DL) 34.3 Immunology ANDRES Titer ND Anti-Nuclear Antibody (NEG,1:40) NEG 1:40 IFA ASSAY Miscellaneous Ref Lab Test Result Pending Last 24 Hours of [place] Results: Blood cultures 2 April 13 negative Diagnostic Data Recent Imaging Findings: Chest x-ray April [address] of the abdomen and pelvis April 13 negative Assessment/Plan Assessment/Plan Impression: This is a 37-year-old man with no significant past medical history admitted on April 13 with a one-day history of nausea with reflux, fevers and chills and a more acute onset of a pinpricking macular rash on the dorsal aspects of both feet and on both palms with no unusual exposures, found to be afebrile with a leukocytosis and mildly elevated liver enzymes. The etiology of this rash is unclear. A tickborne infection must be considered, including [place] spotted fever, given the fact that the rash is distal, though this would be quite unusual in [place], Borrelia miyamotoi, Anaplasma or Lyme, though would expect leukopenia or thrombocytopenia, at least with Anaplasma, as opposed to a leukocytosis, which is unusual for any tickborne infection. West Nile virus is possible, particularly with the paresthesias, though, again, a leukocytosis would be unusual with this. Other viral infections, such as parvovirus, HIV (unlikely as his HIV is negative) or enterovirus could also be considered. A noninfectious process such as vasculitis is possible, though the acuity of his symptoms makes this less likely. Suggestion: 1. Would send serum for [place] spotted fever serology 2. Lyme titer 3. Follow-up tick disease panel (which was apparently sent from the ER) 4. Would check an ESR 5. Recheck CBC today 6. Begin Doxycycline 100 mg po every 12 hours pending above Consult Acknowledgment - Thank you for your consult request.
[2017-04-14 15:41] LABS: ABSOLUTE BASOPHIL COUNT 0 /CUMM (0.0-0.2); ABSOLUTE EOSINOPHIL COUNT 0.3 /CUMM (0.0-0.7); ABSOLUTE LYMPH COUNT 2.3 /CUMM (1.2-3.4); ABSOLUTE MONOCYTE COUNT 0.9 /CUMM (0.10-0.60); EOSINOPHIL % 3.5 % (0-5); MEAN CORPUSCULAR HGB CONC 33.7 G/DL (33.0-37.0); PLATELET COUNT 219 /CUMM (130-400); WHITE BLOOD CELL COUNT 8.1 /CUMM (4.8-10.8)
[2017-04-14 15:44] LABS: ABSOLUTE GRANULOCYTE CT 4.7 /CUMM (1.4-6.5); BASOPHIL % 0.5 % (0.0-2.0); GRANULOCYTE % 57.2 % (42.2-75.2); HEMATOCRIT 43.2 % (42-52); MEAN CORPUSCULAR HGB 30.7 PG (27.0-31.0); MEAN PLATELET VOLUME 8.6 FL (7.4-10.4); RBC DISTRIBUTION WIDTH 12.9 % (11.5-14.5); RED BLOOD CELL CT 4.75 /CUMM (4.70-6.10)
[2017-04-14 21:53] VITALS: BP 102/76
[2017-04-15 06:08] VITALS: BP 104/86
--- NOTE | 2017-04-15 07:07 | PN- Housestaff ---
SHANTA VALDEZ,CHERRY 04/15/17 0706: Subjective Follow-up For: febrile illness with rash Subjective: I saw and examined the patient today morning He is doing much better, denies any overnight events. Rash is improving. He does report mild pain in the right ankle region. Review of Systems Constitutional: Reports: see HPI. Objective Last 24 Hrs of Vital Signs/I&O Vital Signs Date Time Temp Pulse Resp B/P B/P Pulse O2 O2 Flow FiO2 Mean Ox Delivery Rate 04/15 0608 97.5 58 20 104/86 96 Room Air 04/14 2153 98.2 76 18 102/76 96 Room Air 04/14 1435 98.2 74 18 126/80 96 Room Air Intake & Output 04/15 0800 04/15 0000 04/14 1600 Intake Total 1000 350 400 Output Total 350 Balance 1000 350 50 Intake, IV 800 Intake, Oral 200 350 400 Output, Urine 350 Physical Exam General Appearance: Alert, Oriented X3, Cooperative, No Acute Distress Skin: Rash in the feet and hands improving Rash behind the ears is improving HEENT: Atraumatic, PERRLA, EOMI Neck: Supple Cardiovascular: Normal S1, Normal S2 Lungs: Clear to Auscultation, Normal Air Movement Abdomen: Normal Bowel Sounds, Soft, No Tenderness Neurological: Normal Gait, Normal Speech, Strength at 5/5 X4 Ext, Normal Tone, Sensation Intact Extremities: No Clubbing, No Cyanosis, No Edema Current Medications: Current Medications Sig/Isadora Start time Last Medication Dose Route Stop Time Status Admin Acetaminophen 650 MG ONCE ONE 04/15 1000 DC 04/15 PO 04/15 1001 1318 Acetaminophen 650 MG Q6P PRN 04/14 0030 AC PO Doxycycline Hyclate 100 MG 0500,1700 04/15 0500 AC 04/15 PO 1626 Doxycycline Hyclate 100 MG BID 04/14 1451 DC 04/14 PO 1709 Enoxaparin Sodium 40 MG DAILY 04/14 1000 AC 04/15 SC 0936 Ezetimibe 10 MG DAILY 04/14 1000 AC 04/15 PO 0937 Ibuprofen 400 MG ONCE ONE 04/15 0945 CAN PO 04/15 0946 Ibuprofen 600 MG Q6P PRN 04/14 0030 DC PO Oxycodone/ 2 TAB Q6P PRN 04/14 0030 AC Acetaminophen PO Pravastatin Sodium 20 MG 1700 04/14 1700 AC 04/15 PO 1626 Sodium Chloride 1,000 ML Q10H 04/14 0015 DC 04/15 IV 0515 Last 24 Hrs of Lab/[place] Results Last 24 Hrs of Labs/Mics: Laboratory Tests 04/15/17 0605: Anion Gap 9, Estimated GFR > 60, BUN/Creatinine Ratio 13.3, CBC w Diff NO MAN DIFF REQ, RBC 4.63 L, MCV 90.8, MCH 30.6, RDW 13.1, MPV 9.1, Gran % 44.9, Lymphocytes % 36.3, Monocytes % 12.3 H, Eosinophils % 5.8 H, Basophils % 0.7, Absolute Granulocytes 2.8, Absolute Lymphocytes 2.2, Absolute Monocytes 0.8 H, Absolute Eosinophils 0.4, Absolute Basophils 0, PUBS MCHC 33.7, ESR Westergren 20 H 04/15/17 0600: West Nile Virus IgG Ab Pending, West Nile Virus IgM Ab Pending Assessment/Plan Assessment: 37 YO M with no significant PMH came to the [place] ER with nausea and reflux symptoms, associated with fevers and chills along with pinpricking sensation over both feet and hands, followed by the development of a macular rash in these areas. Denies any tick/mosquito bites. On admission he was afebrile. Labs revealed a WBC of 16,000, with 67 segs and 11 bands, BUN/creatinine 12 and 0.9, bilirubin 1.7, AST/ALT 51 and 82. ANDRES negative. Chest x-ray was negative. CT of the abdomen and pelvis with contrast was negative. He has remained afebrile overnight. I am thinking of a tick borne illness at this point, noninfectious causes although less likely include vasculitis. Admitted to general medicine floor Febrile illness with rash * Tickborne illness/RMSF at the most probable differentials * Requested Lyme serology, RMSF serology, cryoglobulin, west nile virus titers * ESR is 20 * White count is decreased with increased monocyte count indicating responding bonemarrow. * Continue doxycycline for a total course of 10days. * ID on board - appreciate recommendations * Hepatitis and HIV are negative Hyperlipidemia: Continue pravastatin 20 mg and Ezetimibe 10mg DVT prophylaxis * Subcutaneous Lovenox CODE STATUS * Full code Problem List: 1. Skin rash 2. Fever 3. Chills Pain Ratin Pain Location: left ankle region Pain Goal: Pain 4 or less Pain Plan: tylenol prn Tomorrow's Labs & Rationales: none CRISELDA CASILLAS 04/15/17 0913: Assessment/Plan Assessment: Feels well overall. Rash improved. DC fluids. Ambulate. Discharge planning. Lymes, anaplasma, ehrilichiosis and RMSF serologies penidng. KARMA MUÑOZ MD 04/15/17 1126: Attending MD Review Statement Attending Statement Attending MD Statement: examined this patient, discuss w/resident/PA/CONSTRUCTION IRONWORKER, agreed w/resident/PA/CONSTRUCTION IRONWORKER, reviewed EMR data (avail) Attending Assessment/Plan: 37M PMH GERD, HLD with 2 days of fever, chills, epigastric discomfort, and bilateral feet swelling and dorsal erythema. No recent change in diet, walked on the beach recently but in shoes, has spent some time outdoors but no memory of tick, insect, or spider bite, no change in clothing, detergent, or other possible irritant. Had initially noticed rash on palms but this resolved. His feet are significantly improved today. The rash has nearly resolved. Swelling has resolved. There is mild left achilles pain but otherwise his feet are non-tender. No other rash. Afebrile, feels well, no complaints. 1. [place] Spotted Fever 2. Unable to ambulate 3. Bilateral foot pain Plan - Likely discharge today - Follow ID recommendations - Follow Lyme titer, cryoglobulins, ANDRES, blood cultures, RMSF as outpatient - Continue Doxycycline - Continue home medications
[2017-04-15 07:54] LABS: ABSOLUTE BASOPHIL COUNT 0 /CUMM (0.0-0.2); ABSOLUTE EOSINOPHIL COUNT 0.4 /CUMM (0.0-0.7); ABSOLUTE GRANULOCYTE CT 2.8 /CUMM (1.4-6.5); ABSOLUTE LYMPH COUNT 2.2 /CUMM (1.2-3.4); ABSOLUTE MONOCYTE COUNT 0.8 /CUMM (0.10-0.60); BASOPHIL % 0.7 % (0.0-2.0); EOSINOPHIL % 5.8 % (0-5); GRANULOCYTE % 44.9 % (42.2-75.2); HEMATOCRIT 42.1 % (42-52); MEAN CORPUSCULAR HGB 30.6 PG (27.0-31.0); MEAN CORPUSCULAR HGB CONC 33.7 G/DL (33.0-37.0); MEAN CORPUSCULAR VOLUME 90.8 FL (80.0-94.0); MEAN PLATELET VOLUME 9.1 FL (7.4-10.4); PLATELET COUNT 234 /CUMM (130-400); RBC DISTRIBUTION WIDTH 13.1 % (11.5-14.5); RED BLOOD CELL CT 4.63 /CUMM (4.70-6.10); WHITE BLOOD CELL COUNT 6.1 /CUMM (4.8-10.8)
--- NOTE | 2017-04-15 12:02 | PN- Infect Dx ---
Subjective Subjective: Afebrile. He feels well with no complaints. He notes improvement in the rash over his feet and both palms. Objective Last 24 Hrs of Vital Signs/I&O Vital Signs Date Time Temp Pulse Resp B/P B/P Pulse O2 O2 Flow FiO2 Mean Ox Delivery Rate 04/15 0608 97.5 58 20 104/86 96 Room Air 04/14 2153 98.2 76 18 102/76 96 Room Air 04/14 1435 98.2 74 18 126/80 96 Room Air Intake & Output 04/15 1600 04/15 0800 04/15 0000 Intake Total 1000 350 Output Total Balance 1000 350 Intake, IV 800 Intake, Oral 200 350 Physical Exam Other Physical Findings: He appears comfortable in no acute distress Skin decreasing rash over the dorsum of both feet, with a petechial component now noted; rash over both palms nearly resolved, with no evidence of any rash elsewhere Lungs are clear Heart regular rhythm with no murmur Extremities no cyanosis, clubbing or edema Results Last 24 Hours of Lab Results: Laboratory Tests 04/15 04/14 0605 1525 Chemistry Sodium (137 - 145 mmol/L) 141 Potassium (3.5 - 5.1 mmol/L) 4.3 Chloride (98 - 107 mmol/L) 106 Carbon Dioxide (22 - 30 mmol/L) 26 Anion Gap (5 - 16) 9 BUN (9 - 20 mg/dL) 12 Creatinine (0.7 - 1.2 mg/dL) 0.9 Estimated GFR (>60 ml/min) > 60 BUN/Creatinine Ratio (7 - 25 %) 13.3 Hematology CBC w Diff NO MAN DIFF REQ NO MAN DIFF REQ WBC (4.8 - 10.8 /CUMM) 6.1 8.1 RBC (4.70 - 6.10 /CUMM) 4.63 L 4.75 Hgb (14.0 - 18.0 G/DL) 14.2 14.6 Hct (42 - 52 %) 42.1 43.2 MCV (80.0 - 94.0 FL) 90.8 91.0 MCH (27.0 - 31.0 PG) 30.6 30.7 RDW (11.5 - 14.5 %) 13.1 12.9 Plt Count (130 - 400 /CUMM) 234 219 MPV (7.4 - 10.4 FL) 9.1 8.6 Gran % (42.2 - 75.2 %) 44.9 57.2 Lymphocytes % (20.5 - 51.1 %) 36.3 28.0 Monocytes % (1.7 - 9.3 %) 12.3 H 10.8 H Eosinophils % (0 - 5 %) 5.8 H 3.5 Basophils % (0.0 - 2.0 %) 0.7 0.5 Absolute Granulocytes (1.4 - 6.5 /CUMM) 2.8 4.7 Absolute Lymphocytes (1.2 - 3.4 /CUMM) 2.2 2.3 Absolute Monocytes (0.10 - 0.60 /CUMM) 0.8 H 0.9 H Absolute Eosinophils (0.0 - 0.7 /CUMM) 0.4 0.3 Absolute Basophils (0.0 - 0.2 /CUMM) 0 0 PUBS MCHC (33.0 - 37.0 G/DL) 33.7 33.7 ESR Westergren (0 - 10 MM) 20 H Immunology Cryoglobulin Interp Pending Last 24 Hours of [place] Results: Blood cultures 2 April 13 negative Assessment/Plan Impression: Improvement with rash improving, temperatures remaining normal and white blood cell count also normal, even prior to initiation of Doxycycline, now Day 2 of treatment for possible tickborne disease, such as [place] spotted fever or Lyme disease or another Borrelial infection, or a viral infection such as West Nile or parvovirus. Suggestion: 1. Lyme titer 2. Serum for West Nile virus titers 3. Follow-up serology for [place] spotted fever and tick disease panel 4. Continue Doxycycline to complete a 10 day course pending above
[2017-04-15] MEDS ORDERED: DOXYCYCLINE HY100 M4 PO (13:35)
--- NOTE | 2017-04-15 13:38 | Patient Discharge Instructions ---
Discharge Instructions General Discharge Information You were seen/treated for: possible tick borne blood infection Special Instructions: Please follow up with your PCP () in a week Please take your medications regularly Diet Continue normal diet: Yes Activity Full Activity/No Limits: Yes Acute Coronary Syndrome Inclusion Criteria At DC or during hospital stay patient has or had the following: ACS DIAGNOSIS No Discharge Core Measures Meds if any: Prescribed or Continued at Discharge Meds if any: NOT Prescribed or Continued at Discharge Congestive Heart Failure Inclusion Criteria At DC or during hospital stay patient has or had the following: CHF DIAGNOSIS No Discharge Core Measures Meds if any: Prescribed or Continued at Discharge Meds if any: NOT Prescribed or Continued at Discharge Cerebrovascular accident Inclusion Criteria At DC or during hospital stay patient has or had the following: CVA/TIA Diagnosis No Discharge Core Measures Meds if any: Prescribed or Continued at Discharge Meds if any: NOT Prescribed or Continued at Discharge Venous thromboembolism Inclusion Criteria VTE Diagnosis No VTE Type NONE VTE Confirmed by (Test) NONE Discharge Core Measures - Per Current guidelines, there needs to be overlap - treatment for the first 5 days of Warfarin therapy. - If discharged on Warfarin prior to 5 days of - overlap therapy, the patient will need to be - assessed for post discharge needs including - *Post discharge parental anticoagulation - *Warfarin and/or parental anticoagulation education - *Follow up date to check INR post discharge At least 5 days overlap therapy as Inpatient No Meds if any: Prescribed or Continued at Discharge Note: Overlap Therapy is Warfarin and Anticoagulant Meds if any: NOT Prescribed or Continued at Discharge
[2017-04-15 14:26] VITALS: BP 104/70
--- NOTE | 2017-04-15 17:02 | Discharge Summary ---
Visit Information Visit Dates Admission Date: 04/13/17 Discharge Date: 04/15/17 Hospital Course Course Attending Physician: TONI PARADA Primary Care Physician: PATRICK HERNANDEZ MD Consulting Request: Consulting Specialty: Infectious Disease Consulting Physician: Reason for Consult: Febrille illness with rash with concern for tick borne illness Hospital Course: 37 YO M with no significant PMH came to the [place] with nausea and reflux symptoms, associated with fevers and chills along with pinpricking sensation over both feet and hands, followed by the development of a macular rash in these areas. Denies any tick/mosquito bites. On admission he was afebrile. Labs revealed WBC of 16,000, with 67 segs and 11 bands, BUN/Cr 12/0.9, bilirubin 1.7, AST/ALT 51 and 82. ANDRES negative. Chest x-ray was negative. CT of the abdomen and pelvis with contrast was negative. He has remained afebrile after admission. I am thinking of a tick borne illness at this point, noninfectious causes although less likely include vasculitis. Admitted to general medicine floor and the following is the management Febrile illness with rash Tickborne illness/RMSF at the most probable differentials. His ESR is 20. White count started to decreased with increased monocyte count indicating responsive bonemarrow. As clinical suspicion is sufficient to start patient on antibiotics for tick borne illness owing to its association with severe illness and even -- he was started on doxycycline 100mg BID for which he responded very well. He was discharged with doxycycline for a total course of 10days. Rash started to improve. Hepatitis and HIV are negative. Pending Lyme serology. RMSF serology, cryoglobulin, west nile virus titers are negative. Hyperlipidemia: Continue pravastatin 20 mg and Ezetimibe 10mg DVT prophylaxis: Subcutaneous Lovenox Complications: none Allergies: Coded Allergies: animal dander (ITCHY WATERY EYES, DYSPNEA 04/13/17) ibuprofen (Intermediate, PALPITATIONS 04/13/17) Significant Procedures: NONE Pertinent Lab Results: as above Disposition Summary Disposition Principal Diagnosis: febrile illness with rash Additional Diagnosis: Hyperlipidemia Discharge Disposition: home or self care Discharge Instructions General Discharge Information Code Status: Full Code Patient's Diet: Regular diet Patient's Activity: Full acitivity as tolerated Follow-Up Instructions/Appts: Please follow up with your PCP () in a week Please take your medications regularly Medications at Discharge Discharge Medications: Continue taking these medications: Pravastatin Sodium (Pravastatin Sodium) 40 MG TABLET 1 Tablet ORAL Every night Qty = 90 Comments: Last Taken: 04/15/17 Time: 4:30 PM Ezetimibe (Zetia) 10 MG TABLET 1 Tablet ORAL DAILY Qty = 90 Comments: Last Taken: 04/15/17 Time: 0930 AM Start taking the following new medications: Doxycycline Hyclate (Doxycycline Hyclate) 100 MG TABLET 1 Tablet ORAL TWICE DAILY Qty = 18 No Refills Comments: Last Taken: 04/15/17 Time: 4:3O PM Copies To: DAVID VALDEZ,PATRICK Attending MD Review Statement Documenting Attending: KARMA MUÑOZ MD
== END 2017-04-15 18:00 | DRG 864 ==
LOC: ERH 19:26 → 2NB 22:42 → ERHI 22:42 → 2NB 22:42 → ENRESERV 23:31 → 2NB 04-14 00:27
PROVIDERS: Emergency Medicine; Internal Medicine; Student in an Organized Health Care Education/Training Program; ADMIT Internal Medicine
DX: R50.9 Fever, unspecified (principal); R21 Rash and other nonspecific skin eruption; E78.5 Hyperlipidemia, unspecified; K21.9 Gastro-esophageal reflux disease without esophagitis; Z87.891 Personal history of nicotine dependence
CPT/HCPCS: 2NBSP; 86317; 86788; 86789; 87798; ERO; 36415; 74177; 81001; 82436; 82595; 87040; 87389; 93005; 93010; 96365; J1650